=== PATIENT | male | born 1950 | race African-American/Black ===

== ENCOUNTER 2016-04-01 19:24 | Observation (INO) | payer OTHER ==
[~2016-04-01] VITALS: Ht 188 cm; Wt 144.8 kg
[~2016-04-01 19:24] MED LIST: AMLODIPINE BESY10 MG PO; ASPIRIN325 MG PO; BYSTOLIC10 MG PO; CLEOCIN300 MG PO; FUROSEMIDE40 MG PO; HYDROCODON-ACE1 EAC7 PO; LISINOPRIL40 MG PO; LOPRESSOR100 M1 PO; LUMIGAN 0.50 DROP/22 BOTH EYES; METFORMIN HCL500 M1 PO; SIMVASTATIN40 MG PO
[2016-04-01 20:03] LABS: HEMATOCRIT 40.9 % (38.0-50.0); MCH 21.3 PG (29.0-34.0); MCV 66.5 FL (86-99); MEAN PLAT.VOLUME 10.4 uM^3 (9.0-12.4); PLATELET COUNT 171 K/uL (156-360); RBC DIS.WIDTH-CV 16.6 % (11.8-14.6); RBC DIS.WIDTH-SD 39.1 % (39-53); RED BLOOD COUNT 6.15 M/uL (4.00-5.50); WHITE BLOOD COUNT 9.4 K/uL (4.1-10.2)
[2016-04-01 20:16] LABS: CHLORIDE 103 mEq/L (99-109); POTASSIUM 3.4 mEq/L (3.7-5.4); SODIUM 139 mEq/L (136-147)
[2016-04-01 20:17] LABS: GLUCOSE 122 mg/dL (70-99)
[2016-04-01 20:19] LABS: ANION GAP 11 MEQ/L (2-14)
[2016-04-01 20:21] LABS: GFR ESTIMATE (CALCULATED) > 59 mL/min/
[2016-04-01 20:22] LABS: UREA NITROGEN (BUN) 12 mg/dL (9-23)
[2016-04-01 21:22] LABS: INTER. NORMALIZED RATIO 1.1; PROTHROMBIN TIME 11.4 (9.2-11.2)
[2016-04-01] MEDS ORDERED: APRESOLINE100 MG PO (21:24)
[2016-04-01 22:07] LABS: TROP-I INTERPRETATION NEGATIVE; TROPONIN-I < 0.01 ng/mL (0.0-0.30)
[2016-04-02] MEDS ORDERED: METOPROLOL SUC200 MG PO (01:35)
[2016-04-02 04:54] VITALS: BP 188/94
[2016-04-02 05:18] VITALS: BP 188/94
[2016-04-02 06:28] LABS: TROP-I INTERPRETATION NEGATIVE; TROPONIN-I < 0.01 ng/mL (0.0-0.30)
[2016-04-02 07:47] VITALS: BP 174/87
[2016-04-02] MEDS ORDERED: NITROSTAT0.4 MG SL (11:53)
[2016-04-02] MEDS ORDERED: LASIX40 MG PO (11:53)
[2016-04-02] MEDS ORDERED: K-DUR20 MEQ PO (11:54)
[2016-04-02 12:08] VITALS: BP 146/65
[2016-04-02 12:20] LABS: TROP-I INTERPRETATION NEGATIVE; TROPONIN-I < 0.01 ng/mL (0.0-0.30)
== END 2016-04-02 12:56 | disposition home or self-care (01) ==
LOC: EME 19:24 → EDOF 04-02 03:28 → 5WEST 04-02 04:36
PROVIDERS: Emergency Medicine; Hospitalist
DX: R06.02 Shortness of breath (principal); I27.2 Other secondary pulmonary hypertension; Z95.828 Presence of other vascular implants and grafts; I71.4 Abdominal aortic aneurysm, without rupture; I35.9 Nonrheumatic aortic valve disorder, unspecified; Z95.2 Presence of prosthetic heart valve; I10 Essential (primary) hypertension; E78.5 Hyperlipidemia, unspecified; Z87.891 Personal history of nicotine dependence
CPT/HCPCS: 71020; 71275; 80048; 84484; 85027; 85610; 85730; 93005; 93306; 99281; 99284; G0378; J1644; J1940; J7040

== ENCOUNTER 2016-07-20 14:33 | Emergency (ER) | payer OTHER ==
[~2016-07-20] VITALS: Ht 188 cm; Wt 144.0 kg
[~2016-07-20 14:33] MED LIST changes: +APRESOLINE100 MG PO; +K-DUR20 MEQ PO; +LASIX40 MG PO; +METOPROLOL SUC200 MG PO; +NITROSTAT0.4 MG SL
[2016-07-20] MEDS ORDERED: ZESTRIL40 MG PO (14:54)
[2016-07-20] MEDS ORDERED: LASIX40 MG PO (14:54)
[2016-07-20] MEDS ORDERED: ZOCOR40 MG PO (14:54)
[2016-07-20] MEDS ORDERED: NORVASC10 MG PO (14:54)
[2016-07-20] MEDS ORDERED: APRESOLINE100 MG PO (14:55)
[2016-07-20] MEDS ORDERED: K-DUR10 MEQ PO (14:55)
[2016-07-20] MEDS ORDERED: LITE COAT ASPI325 M1 PO (14:55)
[2016-07-20] MEDS ORDERED: TOPROL XL200 MG PO (14:55)
[2016-07-20] MEDS ORDERED: AMARYL2 MG PO (14:56)
[2016-07-20 15:50] LABS: EOSINOPHIL (%) 0.3 % (0-5); HEMATOCRIT 42.4 % (38.0-50.0); IMMATURE GRANULOCYTE (%) 0.3 % (0.0-0.7); INSTRUMENT ABS NEUTROPHIL CT 5.1 K/uL; MCH 20.7 PG (29.0-34.0); MCHC 30.7 G/DL (30.0-36.0); MCV 67.6 FL (86-99); MEAN PLAT.VOLUME 10.4 uM^3 (9.0-12.4); MONOCYTE (%) 8.3 % (3-12); MONOCYTE COUNT 0.6 K/uL (0-0.8); NEUTROPHIL (%) 75.8 % (45-76); NEUTROPHIL COUNT 5.1 K/uL (1.8-6.4); PLATELET COUNT 175 K/uL (156-360); RBC DIS.WIDTH-CV 17.9 % (11.8-14.6); RED BLOOD COUNT 6.27 M/uL (4.00-5.50); WHITE BLOOD COUNT 6.8 K/uL (4.1-10.2)
[2016-07-20 15:54] LABS: CHLORIDE 105 mEq/L (99-109); POTASSIUM 3.2 mEq/L (3.7-5.4); SODIUM 143 mEq/L (136-147)
[2016-07-20 15:55] LABS: MAGNESIUM 1.9 mg/dL (1.3-2.7)
[2016-07-20 15:59] LABS: TOTAL BILIRUBIN 0.4 mg/dL (0.0-1.0)
[2016-07-20 16:06] LABS: TROP-I INTERPRETATION NEGATIVE; TROPONIN-I 0.02 ng/mL (0.0-0.30)
[2016-07-20 16:09] LABS: GLUCOSE 115 mg/dL (70-99)
[2016-07-20 16:10] LABS: ANION GAP 14 MEQ/L (2-14)
[2016-07-20 16:12] LABS: ALKALINE PHOSPHATASE 64 IU/L (3-129); GFR ESTIMATE (CALCULATED) > 59 mL/min/
[2016-07-20 16:13] LABS: UREA NITROGEN (BUN) 20 mg/dL (9-23)
[2016-07-20 17:43] VITALS: BP 158/76
== END 2016-07-20 17:44 | disposition home or self-care (01) ==
LOC: EME 14:33
PROVIDERS: Physician Assistant
DX: R06.00 Dyspnea, unspecified (principal); I10 Essential (primary) hypertension; E78.5 Hyperlipidemia, unspecified
CPT/HCPCS: 71020; 80053; 83735; 83880; 84484; 85025; 93005; 99281; 99285

== ENCOUNTER 2016-07-23 11:32 | Emergency (ER) | payer OTHER ==
[~2016-07-23] VITALS: Ht 188 cm; Wt 142.8 kg
[~2016-07-23 11:32] MED LIST changes: +AMARYL2 MG PO; +K-DUR10 MEQ PO; +LITE COAT ASPI325 M1 PO; +NORVASC10 MG PO; +TOPROL XL200 MG PO; +ZESTRIL40 MG PO; +ZOCOR40 MG PO
[2016-07-23 12:51] LABS: HEMATOCRIT 43.3 % (38.0-50.0); MCH 20.6 PG (29.0-34.0); MCHC 30.3 G/DL (30.0-36.0); MEAN PLAT.VOLUME 10.1 uM^3 (9.0-12.4); PLATELET COUNT 177 K/uL (156-360); RBC DIS.WIDTH-CV 18.1 % (11.8-14.6); RBC DIS.WIDTH-SD 39.1 % (39-53); RED BLOOD COUNT 6.37 M/uL (4.00-5.50); WHITE BLOOD COUNT 6.2 K/uL (4.1-10.2)
[2016-07-23 12:54] LABS: CHLORIDE 105 mEq/L (99-109); POTASSIUM 3.4 mEq/L (3.7-5.4); SODIUM 142 mEq/L (136-147)
[2016-07-23 12:55] LABS: D-DIMER ELISA 2.04 mg/L FEU (< 0.57); GLUCOSE 129 mg/dL (70-99)
[2016-07-23 12:57] LABS: ANION GAP 11 MEQ/L (2-14)
[2016-07-23 12:59] LABS: GFR ESTIMATE (CALCULATED) > 59 mL/min/
[2016-07-23 13:00] LABS: UREA NITROGEN (BUN) 17 mg/dL (9-23)
[2016-07-23 13:06] LABS: TROP-I INTERPRETATION NEGATIVE; TROPONIN-I 0.03 ng/mL (0.0-0.30)
[2016-07-23 16:18] VITALS: BP 140/70
== END 2016-07-23 16:20 | disposition home or self-care (01) ==
LOC: EME 11:32
PROVIDERS: Nurse Practitioner Family
DX: R06.00 Dyspnea, unspecified (principal); Z87.891 Personal history of nicotine dependence; E78.5 Hyperlipidemia, unspecified; I10 Essential (primary) hypertension
CPT/HCPCS: 71020; 71275; 80048; 84484; 85027; 85379; 93005; 99281; 99285

== ENCOUNTER 2016-11-17 09:53 | Inpatient (IN) | payer OTHER ==
[~2016-11-17] VITALS: Ht 188 cm; Wt 139.2 kg
[2016-11-17 10:57] LABS: HEMATOCRIT 40.9 % (38.0-50.0); MCH 21.3 PG (29.0-34.0); MCHC 31.3 G/DL (30.0-36.0); MCV 67.9 FL (86-99); RBC DIS.WIDTH-CV 16.2 % (11.8-14.6); RBC DIS.WIDTH-SD 37.6 % (39-53); RED BLOOD COUNT 6.02 M/uL (4.00-5.50); WHITE BLOOD COUNT 7.5 K/uL (4.1-10.2)
[2016-11-17 10:59] LABS: INTER. NORMALIZED RATIO 1.2
[2016-11-17 11:03] LABS: CHLORIDE 100 mEq/L (99-109); SODIUM 141 mEq/L (136-147)
[2016-11-17 11:04] LABS: GLUCOSE 130 mg/dL (70-99)
[2016-11-17 11:06] LABS: ANION GAP 14 MEQ/L (2-14)
[2016-11-17 11:07] LABS: PTT 29.7 SEC (25-37)
[2016-11-17 11:08] LABS: GFR ESTIMATE (CALCULATED) 56 mL/min/
[2016-11-17 11:09] LABS: UREA NITROGEN (BUN) 22 mg/dL (9-23)
[2016-11-17 11:16] LABS: TROP-I INTERPRETATION NEGATIVE; TROPONIN-I 0.03 ng/mL (0.0-0.30)
[2016-11-17 11:36] LABS: PLAT.SUFFICIENCY DECREASED; PLATELET CLUMPS PRESENT - PLATELET COUNTS APPEARS DECREASED; PLATELET COUNT UNABLE TO REPORT K/uL (156-360)
[2016-11-17] MEDS ORDERED: ONCE DAILY1 EACH PO (12:52)
[2016-11-17] MEDS ORDERED: LUMIGAN 0.50 DROP/22 BOTH EYES (12:52)
[2016-11-17] MEDS ORDERED: CHLORTHALIDONE25 MG PO (12:53)
[2016-11-17 15:21] VITALS: BP 174/78
[2016-11-17 21:29] VITALS: BP 150/82
[2016-11-17 23:56] VITALS: BP 127/72
[2016-11-18 04:19] VITALS: BP 133/76
[2016-11-18 06:32] LABS: HEMATOCRIT 38.8 % (38.0-50.0); MCH 20.8 PG (29.0-34.0); MCHC 30.9 G/DL (30.0-36.0); MCV 67.4 FL (86-99); MEAN PLAT.VOLUME 11.6 uM^3 (9.0-12.4); RBC DIS.WIDTH-CV 16.5 % (11.8-14.6); RBC DIS.WIDTH-SD 37.2 % (39-53); RED BLOOD COUNT 5.76 M/uL (4.00-5.50); WHITE BLOOD COUNT 7.9 K/uL (4.1-10.2)
[2016-11-18 06:33] LABS: PLATELET COUNT 175 K/uL (156-360)
[2016-11-18 06:37] LABS: ANION GAP 11 MEQ/L (2-14); CHLORIDE 102 MEQ/L (99-109); GFR ESTIMATE (CALCULATED) 52 mL/min/; POTASSIUM 3.3 MEQ/L (3.7-5.4); SAMPLE HEMOLYSIS CHECK 0; SAMPLE ICTERIC CHECK 0; SAMPLE LIPEMIA CHECK 0; SODIUM 142 MEQ/L (136-147); UREA NITROGEN (BUN) 21 mg/dL (9-23)
[2016-11-18 06:39] LABS: GLUCOSE 90 mg/dL (70-99)
[2016-11-18 06:51] LABS: INTER. NORMALIZED RATIO 1.2; PROTHROMBIN TIME 13.8 SEC (10.2-12.9)
[2016-11-18 06:53] LABS: PTT 61.9 SEC (25-37)
[2016-11-18 07:42] VITALS: BP 161/69
[2016-11-18 11:08] VITALS: BP 140/71
[2016-11-18 15:16] VITALS: BP 129/74
[2016-11-18 19:33] VITALS: BP 136/71
[2016-11-18 23:54] VITALS: BP 150/78
[2016-11-19 03:32] VITALS: BP 131/73
[2016-11-19 04:07] VITALS: BP 110/53
[2016-11-19 06:28] LABS: HEMATOCRIT 39.2 % (38.0-50.0); MCH 20.5 PG (29.0-34.0); MCHC 30.6 G/DL (30.0-36.0); MCV 66.9 FL (86-99); MEAN PLAT.VOLUME 11.3 uM^3 (9.0-12.4); PLATELET COUNT 181 K/uL (156-360); RBC DIS.WIDTH-CV 16.2 % (11.8-14.6); RBC DIS.WIDTH-SD 36.4 % (39-53); RED BLOOD COUNT 5.86 M/uL (4.00-5.50); WHITE BLOOD COUNT 8.1 K/uL (4.1-10.2)
[2016-11-19 06:47] LABS: INTER. NORMALIZED RATIO 1.9
[2016-11-19 07:25] VITALS: BP 123/74
[2016-11-19 07:26] LABS: PROTHROMBIN TIME 21.6 SEC (10.2-12.9)
[2016-11-19] MEDS ORDERED: ELIQUIS5 MG PO (07:40)
[2016-11-19] MEDS ORDERED: ASPIRIN81 M2 PO (07:41)
[2016-11-19 08:01] LABS: ANION GAP 9 MEQ/L (2-14); CHLORIDE 101 MEQ/L (99-109); GFR ESTIMATE (CALCULATED) 56 mL/min/; GLUCOSE 84 mg/dL (70-99); POTASSIUM 3.8 MEQ/L (3.7-5.4); SAMPLE HEMOLYSIS CHECK 0; SAMPLE ICTERIC CHECK 0; SAMPLE LIPEMIA CHECK 0; SODIUM 138 MEQ/L (136-147); UREA NITROGEN (BUN) 18 mg/dL (9-23)
[2016-11-19 11:08] VITALS: BP 137/78
== END 2016-11-19 12:40 | disposition home or self-care (01) | DRG 176 ==
LOC: EME 09:53 → EDOF 12:38 → ENRESERV 12:42 → 5SOUTH 14:25
PROVIDERS: Emergency Medicine; Hospitalist; Internal Medicine
DX: I26.99 Other pulmonary embolism without acute cor pulmonale (principal); R09.02 Hypoxemia; E87.6 Hypokalemia; I13.0 Hypertensive heart and chronic kidney disease with heart failure and stage 1 through stage 4 chronic kidney disease, or unspecified chronic kidney disease; I50.42 Chronic combined systolic (congestive) and diastolic (congestive) heart failure; E11.22 Type 2 diabetes mellitus with diabetic chronic kidney disease; N18.9 Chronic kidney disease, unspecified; I27.2 Other secondary pulmonary hypertension; I36.1 Nonrheumatic tricuspid (valve) insufficiency; E78.5 Hyperlipidemia, unspecified; I25.10 Atherosclerotic heart disease of native coronary artery without angina pectoris; J45.909 Unspecified asthma, uncomplicated; Z79.82 Long term (current) use of aspirin; Z88.0 Allergy status to penicillin; Z87.891 Personal history of nicotine dependence; Z95.2 Presence of prosthetic heart valve
CPT/HCPCS: 71020; 71275; 80048; 83880; 84484; 85027; 85610; 85730; 93005; 93971; 94799; 99281; 99285; J1940; J7040

== ENCOUNTER 2016-12-08 11:05 | Emergency (ER) | payer OTHER ==
[~2016-12-08] VITALS: Ht 188 cm; Wt 134.8 kg
[~2016-12-08 11:05] MED LIST changes: +ASPIRIN81 M2 PO; +CHLORTHALIDONE25 MG PO; +ELIQUIS5 MG PO; +ONCE DAILY1 EACH PO
[2016-12-08] MEDS ORDERED: IBUPROFEN600 MG PO (13:35)
[2016-12-08 13:58] VITALS: BP 158/62
== END 2016-12-08 13:59 | disposition home or self-care (01) ==
LOC: EME 11:05
DX: M79.671 Pain in right foot (principal); M79.672 Pain in left foot; R20.0 Anesthesia of skin; R26.2 Difficulty in walking, not elsewhere classified; I10 Essential (primary) hypertension; E78.5 Hyperlipidemia, unspecified; R73.03 Prediabetes; Z79.84 Long term (current) use of oral hypoglycemic drugs; Z86.711 Personal history of pulmonary embolism; Z87.891 Personal history of nicotine dependence
CPT/HCPCS: 73630; 99281; 99284; J1885

== ENCOUNTER 2017-03-14 20:44 | Emergency (ER) | payer OTHER ==
[~2017-03-14] VITALS: Ht 188 cm; Wt 133.5 kg
[~2017-03-14 20:44] MED LIST changes: +IBUPROFEN600 MG PO
[2017-03-14 21:50] LABS: HEMOGLOBIN 12.5 G/DL (12.5-16.6); MCH 20.5 PG (29.0-34.0); MCHC 31.3 G/DL (30.0-36.0); MCV 65.5 FL (86-99); PLATELET COUNT 299 K/uL (156-360); RBC DIS.WIDTH-CV 17.8 % (11.8-14.6); RBC DIS.WIDTH-SD 37.7 % (39-53); RED BLOOD COUNT 6.11 M/uL (4.00-5.50); WHITE BLOOD COUNT 7.2 K/uL (4.1-10.2)
[2017-03-14 22:02] LABS: CHLORIDE 102 mEq/L (99-109); POTASSIUM 3.5 mEq/L (3.7-5.4); SODIUM 138 mEq/L (136-147)
[2017-03-14 22:03] LABS: MAGNESIUM 1.7 mg/dL (1.3-2.7)
[2017-03-14 22:08] LABS: CREATININE 1.5 mg/dL (0.6-1.3); GFR ESTIMATE (CALCULATED) > 59 mL/min/ (58.99-99999); TROP-I INTERPRETATION NEGATIVE; TROPONIN-I 0.02 ng/mL (0.0-0.30)
[2017-03-14 22:09] LABS: UREA NITROGEN (BUN) 21 mg/dL (9-23)
[2017-03-14 22:19] LABS: GLUCOSE 120 mg/dL (70-99)
[2017-03-15 01:46] LABS: TROP-I INTERPRETATION NEGATIVE; TROPONIN-I 0.06 ng/mL (0.0-0.30)
[2017-03-15 02:08] VITALS: BP 167/88
== END 2017-03-15 02:09 | disposition home or self-care (01) ==
LOC: EME 20:44
PROVIDERS: Emergency Medicine
DX: R06.00 Dyspnea, unspecified (principal); E87.6 Hypokalemia; I10 Essential (primary) hypertension; E78.5 Hyperlipidemia, unspecified; R73.03 Prediabetes; Z87.891 Personal history of nicotine dependence; Z87.442 Personal history of urinary calculi; Z86.711 Personal history of pulmonary embolism; Z88.0 Allergy status to penicillin
CPT/HCPCS: 71275; 80048; 83735; 83880; 84484; 85027; 93005; 99281; 99284

== ENCOUNTER 2017-07-28 19:44 | Observation (INO) | payer OTHER ==
[~2017-07-28] VITALS: Ht 188 cm; Wt 135.8 kg
[~2017-07-28 19:44] MED LIST changes: +AMARYL1 MG PO; -AMARYL2 MG PO
[2017-07-28 20:37] LABS: HEMATOCRIT 41.4 % (38.0-50.0); HEMOGLOBIN 12.8 G/DL (12.5-16.6); MCH 20.9 PG (29.0-34.0); MCHC 30.9 G/DL (30.0-36.0); MCV 67.8 FL (86-99); PLATELET COUNT 150 K/uL (156-360); RBC DIS.WIDTH-CV 18.8 % (11.8-14.6); RBC DIS.WIDTH-SD 41.8 % (39-53); RED BLOOD COUNT 6.11 M/uL (4.00-5.50); WHITE BLOOD COUNT 8.1 K/uL (4.1-10.2)
[2017-07-28 20:44] LABS: CHLORIDE 104 mEq/L (99-109); SODIUM 141 mEq/L (136-147)
[2017-07-28 20:45] LABS: GLUCOSE 120 mg/dL (70-99)
[2017-07-28 20:49] LABS: CREATININE 1.4 mg/dL (0.6-1.3); GFR ESTIMATE (CALCULATED) > 59 mL/min/ (58.99-99999)
[2017-07-28 20:50] LABS: UREA NITROGEN (BUN) 19 mg/dL (9-23)
[2017-07-28 20:53] LABS: TROP-I INTERPRETATION NEGATIVE; TROPONIN-I 0.01 ng/mL (0.0-0.30)
[2017-07-28] MEDS ORDERED: ELIQUIS5 MG PO (22:17)
[2017-07-28] MEDS ORDERED: SPIRONOLACT/HC1 EACH PO (22:19)
[2017-07-29 00:23] VITALS: BP 166/74
[2017-07-29 04:29] VITALS: BP 142/77
[2017-07-29 05:04] LABS: HEMATOCRIT 38.5 % (38.0-50.0); HEMOGLOBIN 12.1 G/DL (12.5-16.6); MCH 21.1 PG (29.0-34.0); MCHC 31.4 G/DL (30.0-36.0); MCV 67.2 FL (86-99); PLATELET COUNT 141 K/uL (156-360); RBC DIS.WIDTH-CV 18.6 % (11.8-14.6); RBC DIS.WIDTH-SD 41.8 % (39-53); RED BLOOD COUNT 5.73 M/uL (4.00-5.50)
[2017-07-29 05:06] LABS: ALBUMIN 3.7 g/dL (3.2-4.8); CHLORIDE 106 mEq/L (99-109); POTASSIUM 3.6 mEq/L (3.7-5.4); SODIUM 139 mEq/L (136-147)
[2017-07-29 05:08] LABS: GLUCOSE 109 mg/dL (70-99)
[2017-07-29 05:09] LABS: TOTAL PROTEIN 6.9 g/dL (6.4-8.3)
[2017-07-29 05:10] LABS: TOTAL BILIRUBIN 0.7 mg/dL (0.0-1.0)
[2017-07-29 05:12] LABS: ALKALINE PHOSPHATASE 53 IU/L (3-129); CREATININE 1.3 mg/dL (0.6-1.3); GFR ESTIMATE (CALCULATED) > 59 mL/min/ (58.99-99999)
[2017-07-29 05:13] LABS: UREA NITROGEN (BUN) 17 mg/dL (9-23)
[2017-07-29 05:14] LABS: AST (GOT) 20 IU/L (2-34)
[2017-07-29 05:15] LABS: ALT (GPT) 18 IU/L (3-49)
[2017-07-29 08:02] LABS: HEMOGLOBIN A1c (GLYCOHEMOGLOB) 6.2 % (Below 5.7)
[2017-07-29 08:25] LABS: TROP-I INTERPRETATION NEGATIVE; TROPONIN-I < 0.01 ng/mL (0.0-0.30)
[2017-07-29 08:38] LABS: FERRITIN 141 NG/ML (22-322)
[2017-07-29 11:35] VITALS: BP 132/68
[2017-07-29 13:00] LABS: TROP-I INTERPRETATION NEGATIVE; TROPONIN-I < 0.01 ng/mL (0.0-0.30)
[2017-07-29 15:30] VITALS: BP 131/73
[2017-07-29 20:00] VITALS: BP 141/71
[2017-07-29 22:48] VITALS: BP 153/76
[2017-07-30 03:22] VITALS: BP 155/76
[2017-07-30 07:41] VITALS: BP 139/72
== END 2017-07-30 12:22 | disposition home or self-care (01) ==
LOC: EME 19:44 → EDOF 22:22 → 4SOUTH 22:22 → EDOF 22:22 → 4SOUTH 22:22 → ENRESERV 22:29 → 4SOUTH 07-29 00:13
PROVIDERS: Internal Medicine; Nurse Practitioner Adult Health
PROC: B246ZZZ Ultrasonography of Right and Left Heart (ICD-10-PCS; principal; 2017-07-29)
DX: R07.89 Other chest pain (principal); I12.9 Hypertensive chronic kidney disease with stage 1 through stage 4 chronic kidney disease, or unspecified chronic kidney disease; E11.22 Type 2 diabetes mellitus with diabetic chronic kidney disease; N18.4 Chronic kidney disease, stage 4 (severe); I08.1 Rheumatic disorders of both mitral and tricuspid valves; Z95.3 Presence of xenogenic heart valve; Z86.711 Personal history of pulmonary embolism; Z79.01 Long term (current) use of anticoagulants; Z95.828 Presence of other vascular implants and grafts; I27.20 Pulmonary hypertension, unspecified; E78.5 Hyperlipidemia, unspecified; Z87.891 Personal history of nicotine dependence; Z88.0 Allergy status to penicillin; Z79.84 Long term (current) use of oral hypoglycemic drugs
CPT/HCPCS: 71046; 71250; 80048; 80053; 82728; 82948; 83036; 84484; 85027; 93005; 93306; 99281; 99285; G0378; J1956; J7030